=== PATIENT | male | born 1990 ===

== ENCOUNTER 2022-09-14 16:29 | Inpatient (IN) | payer SELFPAY ==
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
[2022-09-14 16:52] VITALS: BP 141/87; PULSE 94; RESP 16; TEMP 36.6; O2SAT 97; BMI 28.2
--- NOTE | 2022-09-14 17:12 | PC.NURSE ---
pt calm and cooperative, changed into hospital attire. patient observer at bedside. security going through belongings at this time, pt had suitcases and handbag with him.
--- NOTE | 2022-09-14 17:16 | ED.PSYCH ---
HPI - Psych General Chief Complaint: Psychiatric Symptoms Stated Complaint: crisis Time Seen by Provider: 09/14/22 16:29 History of Present Illness HPI Narrative: Patient is a 32-year-old male presents today with having suicidal thoughts. No specific plan. Patient does not wish to live anymore. He feels he is a burden to his family. His family thought that he was still in college. He actually quit. Patient denies any fever chills denies any recreational drug use. Lives in [facility]. Decided to take a train ride up to [facility]. When asked why [facility] he stated that the hotel hears cheaper has seems like a nice quiet place. Patient states that he has knives in his suitcase. Related Data Allergies Allergy/AdvReac Type Severity Reaction Status Date / Time No Known Allergies Allergy Verified 09/14/22 17:09 Review of Systems Review of Systems: No fever no chills no recreational drug use Positive SI Yes all other systems are reviewed and are negative [facility] Past Medical History Attestation statement: The following information was validated with the patient. Physical Exam Vital Signs: Vital Signs: Last Vital Signs Temp 97.9 F 09/14/22 16:52 Pulse 94 09/14/22 16:52 Resp 16 09/14/22 16:52 BP 141/87 H 09/14/22 16:52 Pulse Ox 97 09/14/22 16:52 O2 Del Method Room Air 09/14/22 16:52 BMI result Body Mass Index 28.2 Appearance: Alert. Oriented X3. No acute distress. Eyes: Pupils equal, round and reactive to light. ENT: Pharynx normal. Neck: Normal inspection. Neck supple. No lymph nodes noted. No crepitus CVS: Normal heart rate and rhythm. Pulses normal. Normal S1 and S2 Respiratory: No respiratory distress. Breath sounds normal. No Wheezing. No rales Abdomen: Soft and nontender. No rigidity. No distention. good BS x4 Skin: Skin warm and dry. Normal skin color. Normal skin turgor. Extremities: No lower extremity edema. Neurovascular intact to all extremities. No Lacerations. No Rash Neuro: Oriented X 3. No motor deficit. No sensory deficit. Moving all extermities. No slurred speech. Cranial nerves grossly intact Medical Decision Making Medical Decision Making MDM Narrative: Patient positive suicidal ideation. Patient came out from [facility] with thoughts of SI. Has been in college for long time. Patient's family thought he is still in college. Patient actually has been out of college for a while. He denies any fever chills. Denies any recreational drug use. Patient was evaluated by crisis. Will admit patient for further evaluation. Differential Diagnosis Differential Diagnoses: The differential diagnosis associated with the presentation includes Depression, suicidal ideation, hypothyroid, recreational drug use Consult Healthcare Provider Management of the patient was discussed with: Behavioral Health Provider Lab Data [facility] Lab Attestation statement: I reviewed the patient's lab results. 09/14/22 17:25 09/14/22 17:25 Labs: Lab Results 09/14/22 09/14/22 09/14/22 Range/Units 17:25 17:25 17:25 WBC 8.1 (4.8-10.8) X10*3/uL RBC 5.57 (4.60-5.80) X10*6/uL Hgb 15.8 (14.0-18.0) g/dl Hct 47.2 (42.0-52.0) % MCV 84.7 (80.0-98.0) fL MCH 28.4 (27.0-33.0) pg MCHC 33.5 (31.0-36.0) g/dl RDW 12.7 (11.0-16.0) % Plt Count 314 (160-400) X10*3/uL MPV 8.6 L (9.4-12.4) fL Immature Gran % (Auto) 0.2 (0.0-0.4) % Neut % (Auto) 70.2 (45-73) % Lymph % (Auto) 22.6 (20-40) % [place] % (Auto) 5.4 (2-11) % Eos % (Auto) 1.1 (0-4) % Baso % (Auto) 0.5 (0-2) % Lymph # (Auto) 1.8 (1.2-4.9) X10*3/uL [place] # (Auto) 0.4 (0.1-1.2) X10*3/uL Eos # (Auto) 0.1 (0.0-0.4) X10*3/uL Baso # (Auto) 0.0 (0.0-0.2) X10*3/uL Abs Immat Gran (auto) 0.02 (0.00-0.03) X10*3/uL Absolute Neuts (auto) 5.7 (2.0-8.3) x10*3/uL Absolute Nucleated RBC 0.000 (0.0-0.012) X10*3/uL Nucleated RBC % (auto) 0.0 (0.0-0.2) /100WBC Sodium 138 (135-145) mmol/L Potassium 4.0 (3.3-5.1) mmol/L Chloride 103 (96-108) mmol/L Carbon Dioxide 24 (22-29) mmol/L Anion Gap 15 (12-20) BUN 9 (9-16) mg/dL Creatinine 1.02 (0.5-1.4) mg/dL Estim Creat Clear Calc 108.3 Estimated GFR > 60 Random Glucose 108 (60-115) mg/dL Calcium 9.8 (8.4-10.2) mg/dL Total Bilirubin 0.8 (0.0-1.0) mg/dL Direct Bilirubin 0.2 (0.0-0.5) mg/dL AST 39 H (5-37) U/L ALT 88 H (0-40) U/L Alkaline Phosphatase 69 (39-117) U/L Total Protein 8.7 H (6.5-8.0) g/dL Albumin 4.7 (3.5-5.0) g/dL TSH (0.32-4.0) uIU/mL Salicylates < 5.0 L (15-30) mg/dL Urine Opiates Screen (Not Detect) Urine Fentanyl Screen (Not Detect) Acetaminophen < 17 (<30) mcg/mL Ur Barbiturates Screen (Not Detect) Ur Phencyclidine Scrn (Not Detect) Ur Amphetamines Screen (Not Detect) U Benzodiazepines Scrn (Not Detect) Urine Cocaine Screen (Not Detect) U Marijuana (THC) Screen (Not Detect) Ethyl Alcohol < 10 mg/dL 09/14/22 09/14/22 Range/Units 17:25 17:25 WBC (4.8-10.8) X10*3/uL RBC (4.60-5.80) X10*6/uL Hgb (14.0-18.0) g/dl Hct (42.0-52.0) % MCV (80.0-98.0) fL MCH (27.0-33.0) pg MCHC (31.0-36.0) g/dl RDW (11.0-16.0) % Plt Count (160-400) X10*3/uL MPV (9.4-12.4) fL Immature Gran % (Auto) (0.0-0.4) % Neut % (Auto) (45-73) % Lymph % (Auto) (20-40) % [place] % (Auto) (2-11) % Eos % (Auto) (0-4) % Baso % (Auto) (0-2) % Lymph # (Auto) (1.2-4.9) X10*3/uL [place] # (Auto) (0.1-1.2) X10*3/uL Eos # (Auto) (0.0-0.4) X10*3/uL Baso # (Auto) (0.0-0.2) X10*3/uL Abs Immat Gran (auto) (0.00-0.03) X10*3/uL Absolute Neuts (auto) (2.0-8.3) x10*3/uL Absolute Nucleated RBC (0.0-0.012) X10*3/uL Nucleated RBC % (auto) (0.0-0.2) /100WBC Sodium (135-145) mmol/L Potassium (3.3-5.1) mmol/L Chloride (96-108) mmol/L Carbon Dioxide (22-29) mmol/L Anion Gap (12-20) BUN (9-16) mg/dL Creatinine (0.5-1.4) mg/dL Estim Creat Clear Calc Estimated GFR Random Glucose (60-115) mg/dL Calcium (8.4-10.2) mg/dL Total Bilirubin (0.0-1.0) mg/dL Direct Bilirubin (0.0-0.5) mg/dL AST (5-37) U/L ALT (0-40) U/L Alkaline Phosphatase (39-117) U/L Total Protein (6.5-8.0) g/dL Albumin (3.5-5.0) g/dL TSH 0.70 (0.32-4.0) uIU/mL Salicylates (15-30) mg/dL Urine Opiates Screen Not Detected (Not Detect) Urine Fentanyl Screen Not Detected (Not Detect) Acetaminophen (<30) mcg/mL Ur Barbiturates Screen Not Detected (Not Detect) Ur Phencyclidine Scrn Not Detected (Not Detect) Ur Amphetamines Screen Not Detected (Not Detect) U Benzodiazepines Scrn Not Detected (Not Detect) Urine Cocaine Screen Not Detected (Not Detect) U Marijuana (THC) Screen Not Detected (Not Detect) Ethyl Alcohol mg/dL Discharge Plan Discharge Clinical Impression: Depression Patient Disposition: Still a Patient Interventions: Faulkner-Suicide Risk Severity Scale Last Done: 09/14/22 17:08
--- NOTE | 2022-09-14 17:25 | PC.NURSE ---
belongings in laundry room
[2022-09-14 17:54] LABS: Alanine Aminotransferase 88 U/L (0-40); Albumin Level 4.7 g/dL (3.5-5.0); Alkaline Phosphatase 69 U/L (39-117); Anion Gap 15 (12-20); Aspartate Amino Transferase 39 U/L (5-37); Bilirubin Direct 0.2 mg/dL (0.0-0.5); Bilirubin Total 0.8 mg/dL (0.0-1.0); Blood Urea Nitrogen 9 mg/dL (9-16); Calcium 9.8 mg/dL (8.4-10.2); Carbon Dioxide 24 mmol/L (22-29); Chloride 103 mmol/L (96-108); Creatinine Clr Calc Pharmacy 108.3; Estimated Glomerular Filt Rate > 60; Ethanol < 10 mg/dL; Glucose Random 108 mg/dL (60-115); Sodium 138 mmol/L (135-145); Total Protein 8.7 g/dL (6.5-8.0)
--- NOTE | 2022-09-14 19:41 | MHC.CARE ---
[phone] Call from patient's brother Robert José ([phone]), he is the contact center representative for the family and would like to speak with the evaluating clinician to provide information. He and his are on the way here from [facility], heavy holiday traffic expect to arrive after 9pm, advised that visiting at that hour would be declined per hospital policy. Nonetheless they are planning to drive straight here.
[2022-09-15 05:00] VITALS: BP 117/63; PULSE 66; RESP 18; TEMP 37.1; O2SAT 98
--- NOTE | 2022-09-15 05:52 | PC.NURSE ---
Patient slept through the night, no distress observed/reported, isolative in his room, did not eat his supper, patient was assessed by care team, disposition is section 12 inpatient bed search, brother Robert came to visit him from [facility], patient refused to meet him, and told us not share his information with anyone, brother is staying in the town left his number ([phone]) incase patient change his mind to talk to him, patient is currently not on any medication, mood depressed and affect flat, response is delayed but coherent, behavior non concerning, VSS, will continue to monitor.
--- NOTE | 2022-09-15 14:31 | PC.NURSE ---
nurse to nurse done with M5 RN Kelly
[2022-09-15 18:00] VITALS: BP 128/74; PULSE 72; RESP 18; TEMP 36.9; O2SAT 99
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
[2022-09-16 18:40] VITALS: BP 128/85; PULSE 92; TEMP 36.8; O2SAT 95
[2022-09-17 08:44] VITALS: BP 138/81; PULSE 91; RESP 16; TEMP 37; O2SAT 97
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
--- NOTE | 2022-09-17 10:24 | PC.NURSE ---
pt verbalized intent to sign a 3day notice on wednesday09/16/2022. 3 day back dated and signed 09/17/22. Up on wednesday09/21/22. Sw, provider & UR aware
[2022-09-17 18:36] VITALS: BP 124/69; PULSE 99; TEMP 36.3
[2022-09-18 06:00] VITALS: BP 112/69; PULSE 78; RESP 16; TEMP 36.4; O2SAT 98
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
[2022-09-18 18:00] VITALS: BP 135/89; PULSE 106; RESP 20; TEMP 36.4; O2SAT 96
[2022-09-19 09:38] VITALS: BP 140/90; PULSE 96; RESP 16; TEMP 36.6; O2SAT 95
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
[2022-09-19 18:34] VITALS: BP 122/81; PULSE 95; TEMP 36.2
[2022-09-19] MEDS: Melatonin 3 MG TABLET PO (23:00)
[2022-09-20 08:22] VITALS: BP 139/73; PULSE 77; RESP 16; TEMP 36.3; O2SAT 98
[2022-09-20] MEDS: buPROPion HCl XL 300 MG TAB.ER.24H PO (09:16)
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
[2022-09-20 18:48] VITALS: BP 129/79; PULSE 110; TEMP 36.4
[2022-09-20] MEDS: Melatonin 3 MG TABLET PO (22:26)
[2022-09-21] MEDS: buPROPion HCl XL 300 MG TAB.ER.24H PO (08:13)
[2022-09-21 08:59] VITALS: BP 122/78; PULSE 77; RESP 16; TEMP 36.7; O2SAT 98
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
[2022-09-21 18:00] VITALS: BP 122/88; PULSE 87; RESP 18; TEMP 36; O2SAT 97
[2022-09-21] MEDS: cloNIDine HCL 0.1 MG TABLET PO (20:49)
[2022-09-22 09:32] VITALS: BP 131/76; PULSE 102; RESP 15; TEMP 36.4; O2SAT 96
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
[2022-09-22 18:00] VITALS: BP 124/78; PULSE 80; TEMP 36.2; O2SAT 97
[2022-09-22] MEDS: cloNIDine HCL 0.1 MG TABLET PO (22:10)
[2022-09-22] MEDS: buPROPion HCl XL 300 MG TAB.ER.24H PO (22:10)
[2022-09-23 08:30] VITALS: BP 149/72; PULSE 93; RESP 18; TEMP 36.4; O2SAT 97
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
== END 2022-09-23 13:04 | disposition home or self-care (01) | DRG 885 ==
LOC: HO.ED 09-15 06:50 → HO.PM5 09-15 15:17
PROVIDERS: Emergency Medicine Emergency Medical Services; Admitting Provider Psychiatry & Neurology Psychiatry; Emergency Provider Emergency Medicine Emergency Medical Services; Visit Provider Psychiatry & Neurology Psychiatry
DX: F33.2 Major depressive disorder, recurrent severe without psychotic features (principal); R45.851 Suicidal ideations; F43.12 Post-traumatic stress disorder, chronic; Z20.822 Contact with and (suspected) exposure to COVID-19
CPT/HCPCS: 36415; 80048; 80076; 80143; 80179; 80307; 81003; 84443; 85025; 87635; 99285; S9485

== ENCOUNTER → 2022-09-15 15:10 | Outpatient (BNV) | payer SELFPAY | PROVIDERS: Admitting Provider Psychiatry & Neurology Psychiatry; Emergency Provider Emergency Medicine Emergency Medical Services; Visit Provider Psychiatry & Neurology Psychiatry | DX: F33.2 Major depressive disorder, recurrent severe without psychotic features (principal); F43.12 Post-traumatic stress disorder, chronic | CPT/HCPCS: 99222; 99231; 99232; 99238 ==